=== PATIENT | female | born 1960 | race Caucasian/White ===

== ENCOUNTER → 2019-11-18 08:04 | Outpatient (CLI) | payer OTHER ==
[~2019-11-18 08:04] MED LIST: METOPROLOL SUCC25 MG PO; OSTERA TABLET1 EACH PO
== END | disposition home or self-care (01) ==
LOC: LAB 08:04
PROVIDERS: ATTEND Obstetrics & Gynecology
DX: N92.4 Excessive bleeding in the premenopausal period (principal); R05 Cough

== ENCOUNTER 2019-11-24 07:15 | Inpatient (IN) | payer OTHER ==
[~2019-11-24] VITALS: Ht 160 cm; Wt 90.7 kg
[~2019-11-24 07:15] MED LIST changes: -METOPROLOL SUCC25 MG PO
[2019-11-24] MEDS ORDERED: METOPROLOL SUCC25 MG PO (08:21)
[2019-12-01] MEDS ORDERED: NABUMETONE750 MG (08:48)
[2019-12-04] MEDS ORDERED: KETO10TA2 PO (10:34)
[2019-12-04] MEDS ORDERED: CODE1TAB37 PO (10:34)
== END 2019-12-04 11:21 | disposition home or self-care (01) | DRG 743 ==
LOC: O/R 12-01 06:06 → SURH 12-01 07:00 → OB/GYN 12-01 10:19
PROVIDERS: ADMIT Obstetrics & Gynecology; ATTEND Obstetrics & Gynecology
PROC: 0UB70ZZ Excision of Bilateral Fallopian Tubes, Open Approach (ICD-10-PCS; 2019-12-01)
PROC: 0UT20ZZ Resection of Bilateral Ovaries, Open Approach (ICD-10-PCS; 2019-12-01)
PROC: 0UT90ZL Resection of Uterus, Supracervical, Open Approach (ICD-10-PCS; principal; 2019-12-01 07:00)
DX: N80.0 Endometriosis of uterus (principal); N84.0 Polyp of corpus uteri; D25.1 Intramural leiomyoma of uterus; N83.8 Other noninflammatory disorders of ovary, fallopian tube and broad ligament; N95.0 Postmenopausal bleeding; N73.6 Female pelvic peritoneal adhesions (postinfective)

== ENCOUNTER 2020-06-23 13:30 | Outpatient (CLI) | payer OTHER ==
[~2020-06-23 13:30] MED LIST changes: +CODE1TAB37 PO; +KETO10TA2 PO; +METOPROLOL SUCC25 MG PO; +NABUMETONE750 MG
== END 2020-06-23 13:46 | disposition home or self-care (01) ==
LOC: SONOGRAMA 13:30
PROVIDERS: ATTEND Surgery
DX: C50.411 Malignant neoplasm of upper-outer quadrant of right female breast (principal); N60.11 Diffuse cystic mastopathy of right breast; N60.12 Diffuse cystic mastopathy of left breast

== ENCOUNTER 2020-09-29 07:00 | Day surgery (SDC) | payer OTHER ==
[~2020-09-29 07:00] MED LIST changes: +CALTRATE 600+D1 EACH PO; +[UNRECOGNIZED DRUG - OTHER] PO
== END 2020-09-29 19:00 | disposition home or self-care (01) ==
LOC: CIR.AMB 07:00
PROVIDERS: ATTEND Surgery
DX: D05.12 Intraductal carcinoma in situ of left breast (principal); Z90.12 Acquired absence of left breast and nipple; Z20.822 Contact with and (suspected) exposure to COVID-19